=== PATIENT | female | born 1970 | race Caucasian/White ===

== ENCOUNTER 2019-05-08 09:15 | Emergency (ER) | payer OTHER ==
[2019-05-08 09:25] VITALS: RESP 18
[2019-05-08] MEDS ORDERED: KETOROLAC 60 MG/2 ML VIAL IM STA (09:47)
--- NOTE | 2019-05-08 10:25 | XR ---
EXAMINATION TYPE: XR chest 2V DATE OF EXAM: 05/08/2019 COMPARISON: None HISTORY: 48-year-old female with shortness of breath, difficulty breathing TECHNIQUE: PA and lateral views FINDINGS: Heart normal size. Aorta and pulmonary vasculature within normal limits. Mild interstitial prominence as a chronic appearance. Strandy atelectasis in the lower lungs with prominent bands at the left bas e. Patchy posterior basilar opacity on the lateral view. IMPRESSION: Prominent bands of atelectasis at the left base. Posteriorly on the lateral view, there is patchy den sity that could represent additional atelectasis. Correlate to exclude early developing pneumonia.
--- NOTE | 2019-05-08 10:44 | ED ---
General Adult HPI - General Chief complaint: Abdominal Pain Stated complaint: SOB, lt sided abd pain Time Seen by Provider: 05/08/19 09:25 Source: patient, RN notes reviewed, old records reviewed Mode of arrival: ambulatory Limitations: no limitations - History of Present Illness Initial comments: This is a 48-year-old female who presents emergency Department complaining of left lateral chest wall pain. Patient states this pain started on Tuesday after she had been lifting an 80 pound Labrador retriever. Patient states the pain hurts to take deep breath cough or bend or twist. Patient states there is no bruising or rashes over the area. Patient states palpating the area also hurts. Patient denies any shortness of breath but she states it does hurt to take a deep breath. Patient denies any anterior chest pain. Patient denies any radiation of the pain. Patient denies any fever chills or cough. Patient denies any abdominal pain. Patient denies any back pain. - Related Data Previous Rx's Medication Instructions Recorded Ibuprofen [Motrin] 600 mg PO Q6HR PRN #20 tab 05/08/19 Allergies Allergy/AdvReac Type Severity Reaction Status Date / Time Dvzynwp-Xvp-Ldv Reductase Allergy Anaphylaxis Verified 05/08/19 09:21 Inhibitor Review of Systems ROS Statement: Those systems with pertinent positive or pertinent negative responses have been documented in the HPI. ROS Other: All systems not noted in ROS Statement are negative. Past Medical History Past Medical History: Diabetes Mellitus History of Any Multi-Drug Resistant Organisms: None Reported Past Surgical History: Cholecystectomy Past Psychological History: No Psychological Hx Reported Smoking Status: Current every day smoker Past Alcohol Use History: Rare Past Drug Use History: None Reported General Exam - General Exam Comments Initial Comments: GENERAL: Patient is well-developed and well-nourished. Patient is nontoxic and well- hydrated and is in mild distress. ENT: Neck is soft and supple. No significant lymphadenopathy is noted. Oropharynx is clear. Moist mucous membranes. Neck has full range of motion without eliciting any pain. EYES: The sclera were anicteric and conjunctiva were pink and moist. Extraocular movements were intact and pupils were equal round and reactive to light. Eyelids were unremarkable. PULMONARY: Unlabored respirations. Good breath sounds bilaterally. No audible rales rhonchi or wheezing was noted. CARDIOVASCULAR: There is a regular rate and rhythm without any murmurs gallops or rubs. Chest pain is reproducible on the left lateral chest wall at about ribs 10 and 11. ABDOMEN: Soft and nontender with normal bowel sounds. No palpable organomegaly was noted. There is no palpable pulsatile mass. SKIN: Skin is clear with no lesions or rashes and otherwise unremarkable. NEUROLOGIC: Patient is alert and oriented x3. Cranial nerves II through XII are grossly intact. Motor and sensory are also intact. Normal speech, volume and content. Symmetrical smile. MUSCULOSKELETAL: Normal extremities with adequate strength and full range of motion. No lower extremity swelling or edema. No calf tenderness. LYMPHATICS: No significant lymphadenopathy is noted PSYCHIATRIC: Normal psychiatric evaluation. Limitations: no limitations Course Vital Signs 05/08/19 09:21 Temperature 97.9 F Pulse Rate 107 H Respiratory 18 Rate Blood Pressure 131/89 O2 Sat by Pulse 100 Oximetry Medical Decision Making - Medical Decision Making Chest x-ray shows a small area of atelectasis. I will back and discussed this with the patient and she had no signs of pneumonia or bronchitis. EKG shows sinus tachycardia at 1 1 bpm MT interval 140 QRS is 86 QT interval 342 QTC is 443. Patient's EKG shows no ST segment elevation or depression. I reevaluated the patient after Toradol she was feeling considerably better and her pain was reduced but continued to be reproducible. Disposition Clinical Impression: Chest wall pain Disposition: HOME SELF-CARE Instructions (If sedation given, give patient instructions): Chest Wall Pain (ED) Prescriptions: Ibuprofen [Motrin] 600 mg PO Q6HR PRN #20 tab PRN Reason: For pain Is patient prescribed a controlled substance at d/c from ED?: No Referrals: Vesta Giraldo MD [Primary Care Provider] - 1-2 days Time of Disposition: 10:40
[2019-05-08 11:09] VITALS: BP 121/78; PULSE 98; TEMP 98
== END 2019-05-08 11:07 | disposition home or self-care (01) ==
LOC: EC 09:15
DX: R07.89 Other chest pain (principal); R10.9 Unspecified abdominal pain; J98.11 Atelectasis; R00.0 Tachycardia, unspecified; E11.9 Type 2 diabetes mellitus without complications; F17.200 Nicotine dependence, unspecified, uncomplicated; Z88.8 Allergy status to other drugs, medicaments and biological substances
CPT/HCPCS: 93005; 71046; 99284; 96372; J1885

== ENCOUNTER 2019-05-24 13:21 | Inpatient (IN) | payer OTHER ==
[2019-05-24 13:32] LABS: Glucose,Whole Blood >600 mg/dL (75-99)
[2019-05-24] MEDS ORDERED: Magnesium Replacement Protocol 1 EACH MISC MISCELLANE PRN (13:40)
[2019-05-24] MEDS ORDERED: Potassium Replacement Protocol 1 EACH MISC MISCELLANE PRN (13:40)
[2019-05-24] MEDS ORDERED: INSULIN REGULAR BOLUS (FROM DRIP BAG) IV ONE (13:40)
[2019-05-24] MEDS ORDERED: SODIUM CHLORIDE 0.9% 2,000 ML IV ONE (13:47)
--- NOTE | 2019-05-24 13:47 | ED ---
General Adult HPI - General Chief complaint: Recheck/Abnormal Lab/Rx Stated complaint: diabetic issues Time Seen by Provider: 05/24/19 13:30 Source: patient, RN notes reviewed, old records reviewed Mode of arrival: ambulatory Limitations: no limitations - History of Present Illness Initial comments: This a 48-year-old female who states she is a diabetic. Patient states she hasn't had insulin for one month because she moved and hasn't been able to find it. Patient states her sugars been high over the last couple of days she's been very nauseated and unable to eat as much is normal. Patient states she is urinating quite a bit. Patient states she's had no recent fever chills or cough per patient denies any dysuria. Patient denies any diarrhea. Patient denies any chest pain palpitations difficulty breathing shortness of breath. Patient denies any abdominal pain. Patient denies any back pain. - Related Data Previous Rx's Medication Instructions Recorded Ibuprofen [Motrin] 600 mg PO Q6HR PRN #20 tab 05/08/19 Allergies Allergy/AdvReac Type Severity Reaction Status Date / Time morphine Allergy Vomiting Verified 05/24/19 13:29 Rdmqyst-Bau-Tai Reductase Allergy Anaphylaxis Verified 05/24/19 13:29 Inhibitor Review of Systems ROS Statement: Those systems with pertinent positive or pertinent negative responses have been documented in the HPI. ROS Other: All systems not noted in ROS Statement are negative. Past Medical History Past Medical History: Diabetes Mellitus History of Any Multi-Drug Resistant Organisms: None Reported Past Surgical History: Cholecystectomy Past Psychological History: No Psychological Hx Reported Smoking Status: Current every day smoker Past Alcohol Use History: Rare Past Drug Use History: None Reported General Exam - General Exam Comments Initial Comments: GENERAL: Patient is well-developed and well-nourished. Patient is nontoxic and well- hydrated and is in mild distress. ENT: Neck is soft and supple. No significant lymphadenopathy is noted. Oropharynx is clear. Dry mucous membranes. Neck has full range of motion without eliciting any pain. EYES: The sclera were anicteric and conjunctiva were pink and moist. Extraocular movements were intact and pupils were equal round and reactive to light. Eyelids were unremarkable. PULMONARY: Unlabored respirations. Good breath sounds bilaterally. No audible rales rhonchi or wheezing was noted. CARDIOVASCULAR: Patient is tachycardic at 130 beats a minute ABDOMEN: Soft and nontender with normal bowel sounds. No palpable organomegaly was noted. There is no palpable pulsatile mass. SKIN: Skin is clear with no lesions or rashes and otherwise unremarkable. NEUROLOGIC: Patient is alert and oriented x3. Cranial nerves II through XII are grossly intact. Motor and sensory are also intact. Normal speech, volume and content. Symmetrical smile. MUSCULOSKELETAL: Normal extremities with adequate strength and full range of motion. LYMPHATICS: No significant lymphadenopathy is noted PSYCHIATRIC: Normal psychiatric evaluation. Limitations: no limitations Course Vital Signs 05/24/19 13:27 Temperature 98.1 F Pulse Rate 128 H Respiratory 20 Rate Blood Pressure 109/79 O2 Sat by Pulse 99 Oximetry Medical Decision Making - Medical Decision Making EKG shows sinus tachycardia at 115 bpm PA interval 132 QRS is 84 QT interval 348 QTC is 481. Patient has ST segment elevation in leads V1 through the 4. Patient also has biphasic T-wave in the same leads. Patient is chest pain-free and has never complained of any chest pain. EKG appeared to be an acute [place] site immediately called a STEMI overhead. After the patient's EKG was done after she had chest pain she said no however she did state at that point tender earlier today she had jaw pain for a few minutes. Patient states she does smoke but she does have a family history of heart disease. Dr. Faria came down and saw the patient and agreed and will be taking the patient to the [facility]. Patient was given Nitropaste aspirin and heparin emergency department. I spoke with Dr. De Jesus he agreed to admit the patient admitted the patient - Lab Data Result diagrams: 05/24/19 13:50 Lab Results 05/24/19 05/24/19 05/24/19 Range/Units 13:30 13:50 13:50 WBC (3.8-10.6) k/uL RBC (3.80-5.40) m/uL Hgb (11.4-16.0) gm/dL Hct (34.0-46.0) % MCV (80.0-100.0) fL MCH (25.0-35.0) pg MCHC (31.0-37.0) g/dL RDW (11.5-15.5) % Plt Count (150-450) k/uL Neutrophils % % Lymphocytes % % Monocytes % % Eosinophils % % Basophils % % Neutrophils # (1.3-7.7) k/uL Lymphocytes # (1.0-4.8) k/uL Monocytes # (0-1.0) k/uL Eosinophils # (0-0.7) k/uL Basophils # (0-0.2) k/uL VBG pH 7.32 (7.31-7.41) VBG pCO2 53 H (37-51) mmHg VBG HCO3 27 (24-28) mmol/L POC Glucose (mg/dL) >600 H (75-99) mg/dL POC Glu Qc Manager ID Fozia Bolaños Urine Color Yellow Urine Appearance Turbid H (Clear) Urine pH 5.5 (5.0-8.0) Ur Specific [place] 1.023 (1.001-1.035) Urine Protein 1+ H (Negative) Urine Glucose (UA) 4+ H (Negative) Urine Ketones 1+ H (Negative) Urine Blood Large H (Negative) Urine Nitrite Negative (Negative) Urine Bilirubin Negative (Negative) Urine Urobilinogen <2.0 (<2.0) mg/dL Ur Leukocyte Esterase Large H (Negative) Urine RBC 8 H (0-5) /hpf Urine WBC >182 H (0-5) /hpf Urine WBC Clumps Many H (None) /hpf Ur Squamous Epith Cells 11 H (0-4) /hpf Urine Bacteria Moderate H (None) /hpf Urine Mucus Rare H (None) /hpf 05/24/19 Range/Units 13:50 WBC 10.2 (3.8-10.6) k/uL RBC 5.67 H (3.80-5.40) m/uL Hgb 15.9 (11.4-16.0) gm/dL Hct 49.6 H (34.0-46.0) % MCV 87.4 (80.0-100.0) fL MCH 28.1 (25.0-35.0) pg MCHC 32.1 (31.0-37.0) g/dL RDW 12.2 (11.5-15.5) % Plt Count 344 (150-450) k/uL Neutrophils % 76 % Lymphocytes % 17 % Monocytes % 5 % Eosinophils % 0 % Basophils % 0 % Neutrophils # 7.8 H (1.3-7.7) k/uL Lymphocytes # 1.7 (1.0-4.8) k/uL Monocytes # 0.5 (0-1.0) k/uL Eosinophils # 0.0 (0-0.7) k/uL Basophils # 0.0 (0-0.2) k/uL VBG pH (7.31-7.41) VBG pCO2 (37-51) mmHg VBG HCO3 (24-28) mmol/L POC Glucose (mg/dL) (75-99) mg/dL POC Glu Qc Manager ID Urine Color Urine Appearance (Clear) Urine pH (5.0-8.0) Ur Specific [place] (1.001-1.035) Urine Protein (Negative) Urine Glucose (UA) (Negative) Urine Ketones (Negative) Urine Blood (Negative) Urine Nitrite (Negative) Urine Bilirubin (Negative) Urine Urobilinogen (<2.0) mg/dL Ur Leukocyte Esterase (Negative) Urine RBC (0-5) /hpf Urine WBC (0-5) /hpf Urine WBC Clumps (None) /hpf Ur Squamous Epith Cells (0-4) /hpf Urine Bacteria (None) /hpf Urine Mucus (None) /hpf Critical Care Time Critical Care Time: Yes Total Critical Care Time: 35 Disposition Clinical Impression: STEMI (ST elevation myocardial infarction) Disposition: ADMITTED IP TO THIS [facility] Time of Disposition: 14:40
[2019-05-24] MEDS: SODIUM CHLORIDE 0.9% 1,000 ML IV SCH ×2 (14:12→20:08)
[2019-05-24] MEDS ORDERED: ASPIRIN 81 MG PO STA (14:23)
[2019-05-24] MEDS ORDERED: HEPARIN SODIUM,PORCINE 5,000 UNIT/ML 1 ML VIAL IV STA (14:33)
[2019-05-24] MEDS: INSULIN REGULAR 100 UNIT in SODIUM CHLORIDE 0.9% 100 ML IV SCH (14:36)
[2019-05-24 14:39] LABS: Basophils % (A) 0 %; Eosinophils % (A) 0 %; HCT 49.6 % (34.0-46.0); HGB 15.9 gm/dL (11.4-16.0); Lymphocytes # (A) 1.7 k/uL (1.0-4.8); Lymphocytes % (A) 17 %; MCH 28.1 pg (25.0-35.0); MCHC 32.1 g/dL (31.0-37.0); MCV 87.4 fL (80.0-100.0); Mean Platelet Volume 7.9; Monocytes # (A) 0.5 k/uL (0-1.0); Monocytes % (A) 5 %; Neutrophils # (A) 7.8 k/uL (1.3-7.7); Neutrophils % (A) 76 %; Platelet Count 344 k/uL (150-450); RBC 5.67 m/uL (3.80-5.40); RDW 12.2 % (11.5-15.5); WBC 10.2 k/uL (3.8-10.6)
[2019-05-24 14:40] LABS: African American GFR (CKD) >90 (>60 ml/min/1.73 sqM); Anion Gap 14 mmol/L; Appearance,Urine Turbid (Clear); Bacteria,Urine Moderate /hpf; Bilirubin,Urine Negative (Negative); Blood Urea Nitrogen 18 mg/dL (7-17); Blood,Urine Large (Negative); Carbon Dioxide 25 mmol/L (22-30); Chloride 95 mmol/L (98-107); Color,Urine Yellow; Glucose,Urine (UA) 4+ (Negative); Ketones,Urine 1+ (Negative); Leukocyte Esterase,Urine Large (Negative); Mucus,Urine Rare /hpf; Nitrite,Urine Negative (Negative); Non-African American GFR(CKD) >90 (>60 ml/min/1.73 sqM); PH, Urine 5.5 (5.0-8.0); Potassium 4.7 mmol/L (3.5-5.1); Protein,Urine 1+ (Negative); RBC,Urine 8 /hpf (0-5); Sodium 134 mmol/L (137-145); Specific Gravity,Urine 1.023 (1.001-1.035); Squamous Epithelial Cell,Urine 11 /hpf (0-4); Urobilinogen,Urine <2.0 mg/dL (<2.0); VBG PH 7.32 (7.31-7.41); WBC,Urine >182 /hpf (0-5)
[2019-05-24] MEDS ORDERED: BIVALIRUDIN 250 MG VIAL IV ONE ×2 (14:54→15:20)
[2019-05-24] MEDS ORDERED: MIDAZOLAM 2 MG/2 ML VIAL ONE (14:54)
[2019-05-24] MEDS ORDERED: LIDOCAINE 1% INJ 10MG/ML (20 ML MDV) ONE (14:54)
[2019-05-24] MEDS ORDERED: SODIUM CHLORIDE 0.9% 50 ML MINI-BAG IV ONE (14:54)
[2019-05-24] MEDS ORDERED: IOPAMIDOL-300 50ML BTL ONE (14:54)
[2019-05-24] MEDS ORDERED: IOPAMIDOL-370 125ML BTL ONE (14:54)
[2019-05-24] MEDS ORDERED: PRASUGREL 10 MG TAB ONE (14:54)
[2019-05-24] MEDS ORDERED: SODIUM CHLORIDE 0.9% 50 ML BAG ONE (15:20)
[2019-05-24 15:56] LABS: Glucose,Whole Blood 476 mg/dL (75-99)
[2019-05-24] MEDS ORDERED: ZOLPIDEM 5 MG TAB PO PRN (16:46)
[2019-05-24] MEDS ORDERED: MAG HYDROX/AL HYDROX/SIMETH 30 ML CUP PO PRN (16:46)
[2019-05-24] MEDS ORDERED: ATROPINE SULFATE 0.1 MG/ML 10ML SYRINGE IV PRN (16:46)
[2019-05-24] MEDS ORDERED: RX INFO: IV CONTRAST WAS GIVEN 1 EACH MISC MISCELLANE PRN (16:46)
[2019-05-24] MEDS ORDERED: NITROGLYCERIN SL TABS 0.4 MG TAB SUBLINGUAL PRN (16:46)
[2019-05-24] MEDS ORDERED: SODIUM CHLORIDE 0.9% 1,000 ML IV SCH (17:00)
[2019-05-24 17:14] LABS: Glucose,Whole Blood 279 mg/dL (75-99)
[2019-05-24 17:56] LABS: Basophils % (A) 0 %; Eosinophils % (A) 0 %; HGB 14.5 gm/dL (11.4-16.0); Lymphocytes % (A) 19 %; MCH 27.8 pg (25.0-35.0); MCHC 32.9 g/dL (31.0-37.0); MCV 84.4 fL (80.0-100.0); Mean Platelet Volume 7.2; Monocytes # (A) 0.5 k/uL (0-1.0); Monocytes % (A) 5 %; Neutrophils % (A) 74 %; Platelet Count 328 k/uL (150-450); RBC 5.21 m/uL (3.80-5.40); RDW 12.1 % (11.5-15.5); WBC 10.8 k/uL (3.8-10.6)
[2019-05-24 18:03] LABS: Cholesterol 156 mg/dL (<200); HDL Cholesterol 37 mg/dL (40-60); LDL Cholesterol,Calculated 93 mg/dL (0-99); Triglycerides 132 mg/dL (<150)
[2019-05-24 18:04] LABS: INR 1.4 (<1.2); Partial Thromboplastin Time 67.4 sec (22.0-30.0); Prothrombin Time 14.2 sec (9.0-12.0)
[2019-05-24 18:08] LABS: Glucose,Whole Blood 195 mg/dL (75-99)
--- NOTE | 2019-05-24 18:47 | CONS ---
CONSULTATION Mrs. Singh is a 48-year-old female who was seen in the emergency room with a diagnosis of UB-bhreliy-ywuizafpk myocardial infarction. The history was obtained from the patient as well as the daughter and the emergency room physician. The patient came to the hospital because her blood sugar was elevated. The patient has a history of diabetes and she has not taken her insulin for one month. She had slight nausea. She denied any vomiting. She denied any fever or chills. Denied any respiratory distress. Patient's blood sugar was 600. Routine EKG was done which shows evidence of ST-segment elevation in V1 to V3 suggestive of anteroseptal myocardial infarction. The patient was complaining of minimal jaw discomfort upon repeat questioning. There is no previous history of myocardial infarction. No history of hypertension. The patient is otherwise ambulatory and functional. Past medical history includes history of cholecystectomy. Review of the systems is otherwise unremarkable. MEDICATIONS: None at present. PHYSICAL EXAMINATION: Physical examination at present reveals a 48-year-old female who is lying comfortably in the bed. Her breathing is not acidotic. Blood pressure is 130/80 mmHg. Head and ENT examination is negative. Neck is supple. There is no increase in jugular venous pressure. Both the carotid pulses are felt. There is no bruit. Chest is symmetrical. HEART: The PMI is not felt. First and second heart sounds are normal. There is no evidence of any murmur. Lungs are clinically clear to auscultation and percussion. Abdomen is soft. Liver and spleen are not enlarged. Bowel sounds are heard. EXTREMITIES: Peripheral pulsations are 2+. EKG shows ST-segment elevation in V2, V3. There is no evidence of any reciprocal ST- segment depression. FINAL IMPRESSION: 1. This patient's EKG is suggestive of acute anteroseptal myocardial infarction. However, the patient is not having any significant symptoms and this could be secondary to her diabetes. 2. Patient has significantly elevated blood sugar. Patient is currently getting IV fluids. The only lab at present available is the blood sugar of 600. Other labs are being awaited. I had an extensive discussion with the patient as well as her daughter and explained that she is having a heart attack and we need to do a catheterization. We do not know at present patient's kidney functions. Patient is undergoing hydration. The risks of dye injury and acute kidney injury were fully explained to the patient as well as her daughter, and they want to proceed with it. The patient has received heparin and aspirin. MMODL / IJN: [id number] /
--- NOTE | 2019-05-24 18:53 | CC ---
CARDIAC CATHETERIZATION REPORT Mrs. Singh is a 48-year-old female who came to the emergency room with a complaint of running a high blood sugar. The patient has a known history of diabetes. She did not take her insulin for last one month. She checked her sugar at home and the blood sugar was high. In view of that, the patient came to the emergency room. The patient did not complain of any other complaint. After further questions, she said she was feeling slightly nauseated. She did not complain of any chest pain. Initial blood sugar was 600. A routine EKG was obtained which showed evidence of ST-segment elevation in V2 to V3 without any significant reciprocal changes. In view of the significant ST-segment elevations suggestive of acute LV-kolbdoy-krotbodxo myocardial infarction, the patient was advised further evaluation with a cardiac catheterization for definitive diagnosis. PROCEDURE DESCRIPTION: The right groin was prepped and draped in the usual manner and the skin was infiltrated with 2% Xylocaine. The right femoral artery was entered using Seldinger technique. A #6- Hebrew sheath was placed in. Selective coronary angiography was then performed in multiple projections and left ventricular pressures were obtained. Patient tolerated the procedure well. HEMODYNAMICS: Left ventricular end-diastolic pressure was 8 to 12 mmHg prior to angiography. No gradient is noted across the aortic valve. SELECTIVE CORONARY ANGIOGRAPHY: Left main coronary artery is normal and patent. LAD is a good-caliber blood vessel. Mid LAD is totally occluded after the origin of the good-sized diagonal branch. The circumflex coronary artery is a good-caliber blood vessel. There is a high obtuse marginal branch with a relatively small-caliber blood vessel and has a 90% stenosis. Right coronary artery is a normal-caliber blood vessel, dominant in distribution, and gives rise to the PDA and PLV branches and it is normal. Left ventriculography reveals anteroapical hypokinesia with an ejection fraction of 45% to 50%. FINAL IMPRESSION: There is a total occlusion of the mid LAD. The first high obtuse marginal branch is a relatively small-caliber blood vessel and has a 90% stenosis. The right coronary artery is normal. RECOMMENDATIONS: The films were reviewed with Dr. De Jesus, and we will proceed with a stent to the LAD. MMODL / IJN: [id number] /
[2019-05-24 19:30] LABS: Glucose,Whole Blood 104 mg/dL (75-99)
[2019-05-24 19:57] LABS: African American GFR (CKD) >90 (>60 ml/min/1.73 sqM); Anion Gap 11 mmol/L; Blood Urea Nitrogen 15 mg/dL (7-17); Calcium 9.6 mg/dL (8.4-10.2); Carbon Dioxide 20 mmol/L (22-30); Chloride 105 mmol/L (98-107); Glucose 244 mg/dL (74-99); Magnesium 2.1 mg/dL (1.6-2.3); Non-African American GFR(CKD) >90 (>60 ml/min/1.73 sqM); Phosphorus 3.3 mg/dL (2.5-4.5); Potassium 4.5 mmol/L (3.5-5.1); Sodium 136 mmol/L (137-145)
--- NOTE | 2019-05-24 20:02 | PTCA ---
PERCUTANEOUSTRANS CORORONARY ANGIOGRAPHY Mrs. Singh is a 48-year-old female with a history of diabetes, history of chronic tobacco use, who has stopped taking her insulin for over a month, came into the emergency room because she noted that her blood sugar was elevated. She had no symptoms of chest discomfort. After over an hour of being in the emergency room an EKG was done that showed ST-segment elevation. She was evaluated by Dr. Faria in view of that. Recommendation was made regarding cardiac catheterization and she underwent cardiac catheterization that showed a totally occluded mid LAD at the takeoff of a diagonal. At that time recommendation was made regarding angioplasty and stenting. The procedure, its risks and complications were discussed with the patient, who was in full understanding and agreement. PROCEDURE DESCRIPTION: A 6-Ecuadorean FR4 guiding catheter was introduced into the system. After cannulating the left main, a 0.014 balanced medium weight J-wire was advanced and positioned in the LAD beyond the total occlusion. Subsequently a 1.5 x 8 mm Mini Trek balloon was advanced and multiple inflations at maximum of 10 atmospheres were done. The balloon was removed and a 0.014 balanced medium weight J-wire was advanced and positioned in the diagonal branch. Subsequently the wire into the LAD was exchanged to a Whisper J-wire and positioned distally. Subsequently, a 2.5 x 12 mm Trek balloon was advanced. Multiple inflations in the LAD were performed. Following that, the balloon was removed and a 2.0 x 12 mm Trek balloon was advanced into the diagonal branch into the LAD and multiple inflations up to 10 atmospheres were done. Subsequently an ASAPLP aspiration catheter was introduced and a run was done in the LAD with no evidence of any clot. Following that, further inflation with a 2.0 x 12 mm Trek balloon was advanced and after the last inflation, the balloon and the guidewire were withdrawn back into the guiding catheter. Images were obtained and repeated. At that point the guiding catheter, the balloon and the guidewire were removed. The sheath was sutured in place. The patient was returned to her room in stable condition. Of note, the patient received a large amount of intracoronary nicardipine. She had evidence of no reflow involving the diagonal branch as well as the LAD. There was improvement in the flow in the LAD, but no mormon to the apex because of no reflow. RESULTS: Totally occluded mid LAD with mormon of flow in the proximal segment of the total occlusion with evidence of no reflow involving the diagonal branch as well as the LAD. RECOMMENDATIONS: At this time I would recommend to continue on the medical therapy. It is possible that the worsening of the no reflow is related to the very elevated blood sugar that brought in the patient. I will maximize her medical therapy. Depending on her progress, further recommendations will be made. Those findings and recommendations were discussed with the patient and her family, who are in full understanding and agreement. Duration of procedure was 71 minutes. ROBLES / VIN: [id number] /
[2019-05-24 20:22] LABS: Glucose,Whole Blood 119 mg/dL (75-99)
[2019-05-24] MEDS ORDERED: ATORVASTATIN 80 MG TAB PO SCH (21:00)
[2019-05-24 21:15] LABS: Glucose,Whole Blood 162 mg/dL (75-99)
[2019-05-24] MEDS: METOPROLOL TARTRATE 25 MG TAB PO SCH (21:44)
[2019-05-24] MEDS: EZETIMIBE 10 MG TAB PO SCH (21:45)
[2019-05-24] MEDS ORDERED: HEPARIN SOD,PORK IN 0.45% NACL 25,000 UNIT in 0.45% NACL 1 250ML.BAG IV SCH (22:00)
[2019-05-24 22:06] LABS: Glucose,Whole Blood 173 mg/dL (75-99)
[2019-05-24] MEDS ORDERED: DEXTROSE 5%-0.45% NACL 1,000 ML with POTASSIUM CHLORIDE 20 MEQ IV SCH ×2 (22:45)
[2019-05-24 23:11] LABS: Glucose,Whole Blood 216 mg/dL (75-99)
[2019-05-24] MEDS: D5-0.45% NACL WITH KCL 20MEQ/L 1,000 ML IV SCH (23:23)
[2019-05-24] MEDS: HEPARIN SOD,PORK IN 0.45% NACL 25,000 UNIT in 0.45% NACL 1 250ML.BAG IV SCH (23:45)
[2019-05-25 00:15] LABS: Glucose,Whole Blood 237 mg/dL (75-99)
[2019-05-25 00:39] LABS: African American GFR (CKD) >90 (>60 ml/min/1.73 sqM); Anion Gap 6 mmol/L; Blood Urea Nitrogen 12 mg/dL (7-17); Calcium 9.2 mg/dL (8.4-10.2); Carbon Dioxide 27 mmol/L (22-30); Chloride 103 mmol/L (98-107); Glucose 211 mg/dL (74-99); Magnesium 1.9 mg/dL (1.6-2.3); Non-African American GFR(CKD) >90 (>60 ml/min/1.73 sqM); Phosphorus 3.6 mg/dL (2.5-4.5); Potassium 3.8 mmol/L (3.5-5.1); Sodium 136 mmol/L (137-145)
[2019-05-25] MEDS: MAGNESIUM SULFATE-D5W PMX 1 GM in DEXTROSE/WATER 1 100ML.BAG IVPB SCH ×2 (01:13→02:17)
[2019-05-25 01:26] LABS: Glucose,Whole Blood 314 mg/dL (75-99)
[2019-05-25] MEDS: INSULIN REGULAR 100 UNIT in SODIUM CHLORIDE 0.9% 100 ML IV SCH (02:17)
[2019-05-25 02:20] LABS: Glucose,Whole Blood 284 mg/dL (75-99)
[2019-05-25 03:06] LABS: Glucose,Whole Blood 260 mg/dL (75-99)
[2019-05-25] MEDS ORDERED: POTASSIUM CHLORIDE 10 MEQ in WATER FOR INJECTION 1 100ML.BAG IVPB SCH (03:15)
[2019-05-25 04:10] LABS: Glucose,Whole Blood 246 mg/dL (75-99)
[2019-05-25 05:16] LABS: Glucose,Whole Blood 193 mg/dL (75-99)
[2019-05-25 05:51] LABS: African American GFR (CKD) >90 (>60 ml/min/1.73 sqM); Anion Gap 8 mmol/L; Blood Urea Nitrogen 9 mg/dL (7-17); Calcium 8.7 mg/dL (8.4-10.2); Carbon Dioxide 22 mmol/L (22-30); Chloride 104 mmol/L (98-107); Glucose 182 mg/dL (74-99); Magnesium 2.5 mg/dL (1.6-2.3); Non-African American GFR(CKD) >90 (>60 ml/min/1.73 sqM); Phosphorus 2.5 mg/dL (2.5-4.5); Potassium 4.1 mmol/L (3.5-5.1); Sodium 134 mmol/L (137-145)
[2019-05-25] MEDS: HEPARIN SODIUM,PORCINE 5,000 UNIT/ML 1 ML VIAL IV PRN ×2 (05:59→13:34)
[2019-05-25 06:14] LABS: Glucose,Whole Blood 147 mg/dL (75-99)
[2019-05-25] MEDS: D5-0.45% NACL WITH KCL 20MEQ/L 1,000 ML IV SCH (06:19)
[2019-05-25] MEDS ORDERED: INSULIN DETEMIR (LEVEMIR) 100 UNIT/ML SYR SQ SCH (07:00)
[2019-05-25 07:01] LABS: Basophils % (A) 0 %; Eosinophils # (A) 0.1 k/uL (0-0.7); Eosinophils % (A) 1 %; HCT 39.2 % (34.0-46.0); Lymphocytes # (A) 2.6 k/uL (1.0-4.8); Lymphocytes % (A) 21 %; MCH 27.8 pg (25.0-35.0); MCHC 33.3 g/dL (31.0-37.0); MCV 83.7 fL (80.0-100.0); Mean Platelet Volume 7.2; Monocytes # (A) 0.7 k/uL (0-1.0); Monocytes % (A) 6 %; Neutrophils # (A) 8.8 k/uL (1.3-7.7); Neutrophils % (A) 71 %; Platelet Count 284 k/uL (150-450); RBC 4.68 m/uL (3.80-5.40); RDW 12.2 % (11.5-15.5); WBC 12.4 k/uL (3.8-10.6)
[2019-05-25 07:05] LABS: Glucose,Whole Blood 139 mg/dL (75-99)
[2019-05-25 08:12] LABS: Glucose,Whole Blood 252 mg/dL (75-99)
[2019-05-25] MEDS ORDERED: LISINOPRIL 2.5 MG TAB PO SCH (09:00)
[2019-05-25 09:26] LABS: Glucose,Whole Blood 327 mg/dL (75-99)
--- NOTE | 2019-05-25 10:00 | ECHOF ---
Referral Reason:mi MEASUREMENTS -------- HEIGHT: 157.5 cm WEIGHT: 70.3 kg BP: IVSd: 1.3 cm (0.6 - 1.1) LVIDd: 4.0 cm (3.9 - 5.3) LVPWd: 1.5 cm (0.6 - 1.1) IVSs: 1.4 cm LVIDs: 3.2 cm LVPWs: 1.5 cm LAESV Index (A-L): 21.78 ml/m Ao Diam: 2.9 cm (2.0 - 3.7) AV Cusp: 1.9 cm (1.5 - 2.6) LA Diam: 2.7 cm (2.7 - 3.8) MV E Richard: 0.45 m/s MV DecT: 106 ms MV A Richard: 0.90 m/s MV E/A Ratio: 0.50 FINDINGS -------- Sinus rhythm. This was a technically adequate study. The left ventricular size is normal. There is mild concentric left ventricular hypertrophy. Overa ll left ventricular systolic function is severely impaired with, an EF between 25 - 30 %. Apical an terior LV wall motion is hypokinetic. Apical lateral LV wall motion is hypokinetic. Apical infe rior LV wall motion is hypokinetic. Apical septum LV wall motion is hypokinetic. Harshaw Hypokines is. The right ventricle is normal in size. Normal LA size by volume 22+/-6 ml/m2. The right atrial size is normal. Interatrial and interventricular septum intact. There is no evidence of aortic regurgitation. There is no evidence of aortic stenosis. Mild mitral regurgitation is present. Mild tricuspid regurgitation present. There is no evidence of pulmonary hypertension. The right v entricular systolic pressure, as measured by Doppler, is {RVSP}. There is no pulmonic regurgitation present. The aortic root size is normal. Normal inferior vena cava with normal inspiratory collapse consistent with estimated right atrial pre ssure of 5 mmHg. There is no pericardial effusion. CONCLUSIONS -------- 1. Sinus rhythm. 2. This was a technically adequate study. 3. The left ventricular size is normal. 4. There is mild concentric left ventricular hypertrophy. 5. Overall left ventricular systolic function is severely impaired with, an EF between 25 - 30 %. 6. Apical anterior LV wall motion is hypokinetic. 7. Apical lateral LV wall motion is hypokinetic. 8. Apical inferior LV wall motion is hypokinetic. 9. Apical septum LV wall motion is hypokinetic. 10. Harshaw Hypokinesis. 11. The right ventricle is normal in size. 12. Normal LA size by volume 22+/-6 ml/m2. 13. The right atrial size is normal. 14. Interatrial and interventricular septum intact. 15. There is no evidence of aortic regurgitation. 16. There is no evidence of aortic stenosis. 17. Mild mitral regurgitation is present. 18. Mild tricuspid regurgitation present. 19. There is no evidence of pulmonary hypertension. 20. The right ventricular systolic pressure, as measured by Doppler, is {RVSP}. 21. There is no pulmonic regurgitation present. 22. The aortic root size is normal. 23. Normal inferior vena cava with normal inspiratory collapse consistent with estimated right atrial pressure of 5 mmHg. 24. There is no pericardial effusion. CONSTRUCTION MANAGER: Katharine Boss RDCS
[2019-05-25] MEDS: ASPIRIN 81 MG PO SCH (10:20)
[2019-05-25] MEDS: SPIRONOLACTONE 25 MG TAB PO SCH (10:21)
[2019-05-25] MEDS: EZETIMIBE 10 MG TAB PO SCH (10:21)
[2019-05-25] MEDS: LOSARTAN 25 MG TAB PO SCH (10:21)
[2019-05-25] MEDS: METOPROLOL TARTRATE 25 MG TAB PO SCH ×2 (10:22→21:37)
[2019-05-25 10:29] VITALS: BMI 28.1
[2019-05-25] MEDS: INSULIN NPH 300 UNIT/3 ML VIAL SQ SCH ×2 (11:02→21:47)
[2019-05-25] MEDS: PRASUGREL 10 MG TAB PO SCH (11:02)
[2019-05-25 12:03] LABS: Glucose,Whole Blood 306 mg/dL (75-99)
[2019-05-25] MEDS: INSULIN ASPART (NovoLOG) 100 UNIT/ML VIAL SQ SCH ×3 (12:03→21:38)
--- NOTE | 2019-05-25 12:23 | PN ---
PROGRESS NOTE This patient came with uncontrolled blood sugar and elevated blood sugar as well as anterior wall myocardial infarction. The patient had a total occlusion of the mid LAD. However, patient had no distal runoff so patient just had a balloon dilatation, but no stent was placed in the patient. Patient's LV gram showed only a small area of anterior apical hypokinesia. Maximum troponin is 29 noted. The patient is doing fairly well. She is comfortable. Blood pressure is 113/81 mmHg, heart rate is now 100 per minute. First and second heart sounds are normal. Lungs are clinically clear to auscultation and percussion. We will continue heparin for 24 hours. Continue Effient and aspirin. The patient is allergic to all the STATIN, may consider for Repatha as an outpatient. MMODL / IJN: [id number] /
[2019-05-25 16:49] LABS: Glucose,Whole Blood 224 mg/dL (75-99)
[2019-05-25] MEDS ORDERED: FUROSEMIDE 10 MG/ML 2 ML VIAL IV ONE (18:15)
[2019-05-25] MEDS: HEPARIN SOD,PORK IN 0.45% NACL 25,000 UNIT in 0.45% NACL 1 250ML.BAG IV SCH (21:44)
[2019-05-25 21:47] LABS: Glucose,Whole Blood 258 mg/dL (75-99)
--- NOTE | 2019-05-25 23:43 | P.HPIM ---
History of Present Illness H&P Date: 05/25/19 Chief Complaint: nausea, vomiting Sahara Singh is a 48 yo F with PMH of T2DM who presents to [facility] ED complaining of weakness and fatigue over the past few weeks as well as nausea, vomiting and diaphoresis since yesterday morning. She states she ran out of insulin and had not been able to pick any up for the past month or so, and her sugars have been running in the 400s. She had been lethargic and experiencing polyuria. She states that after developing nausea and diaphoresis today she presented to the ED. On arrival vitals stable, WBC 10k, glucose >600, trop 12 E KG shows STEMI. [facility] was [facility] [employer] [facility] and found to have an occluded mid- LAD and underwent ballooning. Subsequent echo showed LVEF 25-30% and apical hypokinesis. She is a nonsmoker and did not experience any chest pain. Review of Systems All systems: negative Constitutional: Reports lethargy, Denies chills, Denies fever Eyes: denies blurred vision, denies pain Ears, nose, mouth and throat: Denies headache, Denies sore throat Cardiovascular: Denies chest pain, Denies shortness of breath Respiratory: Denies cough Gastrointestinal: Reports nausea, Reports vomiting, Denies abdominal pain, Denies diarrhea Genitourinary: Denies dysuria, Denies hematuria Musculoskeletal: Denies myalgias Integumentary: Denies pruritus, Denies rash Neurological: Denies numbness, Denies weakness Psychiatric: Denies anxiety, Denies depression Endocrine: Reports excessive sweating, Denies fatigue, Denies weight change Past Medical History Past Medical History: Diabetes Mellitus History of Any Multi-Drug Resistant Organisms: None Reported Past Surgical History: Cholecystectomy, Joint Replacement Additional Past Surgical History / Comment(s): Left knee partial Past Psychological History: No Psychological Hx Reported, Anxiety, Depression, Panic Disorder Smoking Status: Current every day smoker Past Alcohol Use History: Rare Past Drug Use History: None Reported - Past Family History Mother Family Medical History: COPD, Myocardial Infarction (MS) Additional Family Medical History / Comment(s): MS at 67 years old Medications and Allergies Home Medications Medication Instructions Recorded Confirmed Type Insulin Unknown See Protocol SQ DIRECTED 05/24/19 05/24/19 History Omeprazole [PriLOSEC] 20 mg PO AC-BID 05/24/19 05/24/19 History Pioglitazone HCl 15 mg PO DAILY 05/24/19 05/24/19 History metFORMIN HCL ER [Glucophage Xr] See Taper PO DIRECTED 05/24/19 05/24/19 History Allergies Allergy/AdvReac Type Severity Reaction Status Date / Time morphine Allergy Vomiting Verified 05/24/19 14:49 Jslvhsu-Wta-Lza Reductase Allergy Anaphylaxis Verified 05/24/19 14:49 Inhibitor Physical Exam Vitals: Vital Signs Temp Pulse Resp BP Pulse Ox 05/25/19 23:00 85 21 97/69 96 05/25/19 22:00 95 10 L 97/68 97 05/25/19 21:00 97 18 100/67 96 05/25/19 20:00 98.6 F 98 18 88/64 94 L 05/25/19 19:00 90 17 93/65 98 05/25/19 18:00 90 20 84/52 98 05/25/19 17:00 98 21 96/69 100 05/25/19 16:00 89 20 92/71 95 05/25/19 15:00 85 20 103/72 95 05/25/19 14:00 87 23 95/73 96 05/25/19 13:00 81 17 109/63 95 05/25/19 12:00 98.7 F 83 14 95/71 97 05/25/19 11:00 98 15 112/75 97 05/25/19 10:00 100 20 113/81 97 05/25/19 09:00 106 H 19 115/73 95 05/25/19 08:00 98.2 F 102 H 24 104/80 95 05/25/19 07:00 106 H 26 H 102/72 96 05/25/19 06:00 95 21 81/61 95 05/25/19 05:00 92 20 105/75 96 05/25/19 04:00 99.7 F H 92 12 105/75 95 05/25/19 03:00 92 17 96/70 95 05/25/19 02:00 92 21 92/66 94 L 05/25/19 01:00 90 20 94/68 95 05/25/19 00:34 95 05/25/19 00:00 100.2 F H 89 18 106/76 96 05/24/19 23:30 100 20 110/77 96 Intake and Output 05/25/19 05/25/19 05/26/19 14:59 22:59 06:59 Intake Total 690.677 262.716 20 Output Total 3 1 Balance 687.677 261.716 20 Intake: IV 610 160 20 D5-0.45% NaCl with KCl 450 20Meq/l 1,000 ml @ 150 mls/hr IV .Q6H40M SEJAL Rx# :[id number] Sodium Chloride 0.9% 1, 160 160 20 000 ml @ 100 mls/hr IV . Q10H SEJAL Rx#:[id number] Intake, IV Titration 80.677 102.716 Amount Heparin Sod,Pork in 0.45% 80.677 102.716 NaCl 25,000 unit In 0.45 % NaCl 1 250ml.bag @ 12 UNITS/KG/HR 8.437 mls/hr IV .Q24H SEJAL Rx#: [id number] Output: Urine 3 1 Other: Voiding Method Toilet Toilet # Voids 1 0 Weight 69.8 kg General: well nourished, well developed, NAD. Vitals reviewed Eyes: PERRL, EOMI, conjunctiva normal HENT: normocephalic, mucus membranes moist Neck: supple, no JVD Lungs: normal respiratory effort, no wheezes or rales CV: Regular rate and rhythm, no murmur. Peripheral pulses 2+ Abdomen: soft, nondistended, no organomegaly Lymph: no cervical or axillary LAD Skin: warm and dry. Neuro: A&Ox3, normal mood and affect Results CBC & Chem 7: 05/25/19 06:45 05/25/19 05:03 Labs: Abnormal Lab Results - Last 24 Hours (Table) 05/24/19 05/24/19 05/25/19 Range/Units 23:32 23:32 00:04 WBC (3.8-10.6) k/uL Neutrophils # (1.3-7.7) k/uL APTT (22.0-30.0) sec Sodium 136 L (137-145) mmol/L Glucose 211 H (74-99) mg/dL POC Glucose (mg/dL) 237 H (75-99) mg/dL Magnesium (1.6-2.3) mg/dL Troponin I 24.300 H* (0.000-0.034) ng/mL 12/13/19 12/13/19 12/13/19 Range/Units 01:14 02:09 02:54 WBC (3.8-10.6) k/uL Neutrophils # (1.3-7.7) k/uL APTT (22.0-30.0) sec Sodium (137-145) mmol/L Glucose (74-99) mg/dL POC Glucose (mg/dL) 314 H 284 H 260 H (75-99) mg/dL Magnesium (1.6-2.3) mg/dL Troponin I (0.000-0.034) ng/mL 05/25/19 05/25/19 05/25/19 Range/Units 03:58 05:03 05:03 WBC (3.8-10.6) k/uL Neutrophils # (1.3-7.7) k/uL APTT (22.0-30.0) sec Sodium 134 L (137-145) mmol/L Glucose 182 H (74-99) mg/dL POC Glucose (mg/dL) 246 H (75-99) mg/dL Magnesium 2.5 H (1.6-2.3) mg/dL Troponin I 29.500 H* (0.000-0.034) ng/mL 05/25/19 05/25/19 05/25/19 Range/Units 05:03 05:04 06:03 WBC (3.8-10.6) k/uL Neutrophils # (1.3-7.7) k/uL APTT 30.5 H (22.0-30.0) sec Sodium (137-145) mmol/L Glucose (74-99) mg/dL POC Glucose (mg/dL) 193 H 147 H (75-99) mg/dL Magnesium (1.6-2.3) mg/dL Troponin I (0.000-0.034) ng/mL 05/25/19 05/25/19 05/25/19 Range/Units 06:45 06:54 08:02 WBC 12.4 H (3.8-10.6) k/uL Neutrophils # 8.8 H (1.3-7.7) k/uL APTT (22.0-30.0) sec Sodium (137-145) mmol/L Glucose (74-99) mg/dL POC Glucose (mg/dL) 139 H 252 H (75-99) mg/dL Magnesium (1.6-2.3) mg/dL Troponin I (0.000-0.034) ng/mL 05/25/19 05/25/19 05/25/19 Range/Units 09:14 11:51 12:16 WBC (3.8-10.6) k/uL Neutrophils # (1.3-7.7) k/uL APTT 38.2 H (22.0-30.0) sec Sodium (137-145) mmol/L Glucose (74-99) mg/dL POC Glucose (mg/dL) 327 H 306 H (75-99) mg/dL Magnesium (1.6-2.3) mg/dL Troponin I (0.000-0.034) ng/mL 05/25/19 05/25/19 05/25/19 Range/Units 12:16 16:37 19:41 WBC (3.8-10.6) k/uL Neutrophils # (1.3-7.7) k/uL APTT 55.9 H (22.0-30.0) sec Sodium (137-145) mmol/L Glucose (74-99) mg/dL POC Glucose (mg/dL) 224 H (75-99) mg/dL Magnesium (1.6-2.3) mg/dL Troponin I 26.200 H* (0.000-0.034) ng/mL 05/25/19 Range/Units 21:36 WBC (3.8-10.6) k/uL Neutrophils # (1.3-7.7) k/uL APTT (22.0-30.0) sec Sodium (137-145) mmol/L Glucose (74-99) mg/dL POC Glucose (mg/dL) 258 H (75-99) mg/dL Magnesium (1.6-2.3) mg/dL Troponin I (0.000-0.034) ng/mL Microbiology - Last 24 Hours (Table) 05/24/19 13:50 Urine Culture - Preliminary Urine,Voided Thrombosis Risk Factor Assmnt - Choose All That Apply Each Factor Represents 1 point: Acute MS, Age 41-60 years Thrombosis Risk Factor Assessment Total Risk Factor Score: 2 Thrombosis Risk Factor Assessment Level: Low Risk Assessment and Plan (1) Type 2 diabetes mellitus with insulin therapy Current Visit: Yes Status: Acute Code(s): E11.9 - TYPE 2 DIABETES MELLITUS WITHOUT COMPLICATIONS; Z79.4 - RETIREMENT (CURRENT) USE OF INSULIN SNOMED Code(s): 17632668 (2) Wall motion abnormality of inferior wall of left ventricle Current Visit: Yes Status: Acute Code(s): R93.1 - ABNORMAL FINDINGS ON DX IMAGING OF HEART AND COR CIRC SNOMED Code(s): 657824197 (3) Systolic CHF, acute Current Visit: Yes Status: Acute Code(s): I50.21 - ACUTE SYSTOLIC (CONGESTIVE) HEART FAILURE SNOMED Code(s): 918386646 (4) STEMI (ST elevation myocardial infarction) Current Visit: Yes Status: Acute Code(s): I21.3 - ST ELEVATION (STEMI) MYOCARDIAL INFARCTION OF [facility] SITE SNOMED Code(s): 53585962 Plan: 1. STEMI. Cardiology following. Continue heparin. Effient and ASA 2. New onset systolic CHF. metoprolol, losartan, aldactone 3. T2DM. Start insulin NPH 15 U bid. Accucheck, sliding scale DVT prophylaxis heparin
[2019-05-26 04:50] LABS: Basophils % (A) 0 %; Eosinophils # (A) 0.1 k/uL (0-0.7); Eosinophils % (A) 1 %; HCT 37.6 % (34.0-46.0); HGB 12.6 gm/dL (11.4-16.0); Lymphocytes # (A) 2.8 k/uL (1.0-4.8); Lymphocytes % (A) 27 %; MCH 28.1 pg (25.0-35.0); MCHC 33.5 g/dL (31.0-37.0); MCV 83.9 fL (80.0-100.0); Mean Platelet Volume 7.6; Monocytes # (A) 0.5 k/uL (0-1.0); Monocytes % (A) 5 %; Neutrophils # (A) 6.6 k/uL (1.3-7.7); Neutrophils % (A) 65 %; Platelet Count 305 k/uL (150-450); RBC 4.48 m/uL (3.80-5.40); RDW 12.1 % (11.5-15.5); WBC 10.2 k/uL (3.8-10.6)
--- NOTE | 2019-05-26 06:40 | XR ---
EXAMINATION TYPE: XR chest 1V portable DATE OF EXAM: 05/26/2019 HISTORY: sob. REFERENCE: Previous study dated 05/08/2019. FINDINGS: There is continuing left basilar atelectasis. The right lung appears clear. Pleural spaces are clear. Heart size is within normal limits. IMPRESSION: CONTINUING LEFT BASILAR ATELECTASIS.
[2019-05-26 07:15] LABS: Glucose,Whole Blood 284 mg/dL (75-99)
[2019-05-26] MEDS: INSULIN ASPART (NovoLOG) 100 UNIT/ML VIAL SQ SCH ×4 (07:17→21:04)
[2019-05-26] MEDS: PRASUGREL 10 MG TAB PO SCH (07:58)
[2019-05-26] MEDS: SPIRONOLACTONE 25 MG TAB PO SCH (07:59)
[2019-05-26] MEDS: EZETIMIBE 10 MG TAB PO SCH (07:59)
[2019-05-26] MEDS: ASPIRIN 81 MG PO SCH (08:02)
[2019-05-26] MEDS ORDERED: INSULIN NPH 300 UNIT/3 ML VIAL SQ SCH (09:00)
[2019-05-26 11:49] LABS: Glucose,Whole Blood 221 mg/dL (75-99)
[2019-05-26] MEDS: METOPROLOL TARTRATE 25 MG TAB PO SCH (12:10)
[2019-05-26] MEDS: LOSARTAN 25 MG TAB PO SCH (12:11)
--- NOTE | 2019-05-26 14:18 | PN ---
PROGRESS NOTE This patient is status post anterior wall myocardial infarction. She is feeling better. Denies any shortness of breath, orthopnea or PND. Denies any cough. Patient's vital signs remain stable. Blood pressure is 110/70 mmHg. First and second heart sounds are normal. Lungs are clinically clear to auscultation and percussion. The patient's echocardiogram reviewed. The patient's predominant with apical septal and apical hypokinesia. Estimated ejection fraction in the range of 40%. This was discussed with the patient. We will repeat the echocardiogram in 6 weeks. MMODL / IJN: [id number] /
[2019-05-26] MEDS: NICOTINE 14MG/24HR PATCH TRANSDERM SCH (14:45)
--- NOTE | 2019-05-26 16:25 | P.PN ---
Subjective this is a pleasant 48 years old female with past medical history of diabetes mellitus. Presents because of hyperglycemia.found to haveSTEMI with si gnificantly elevated troponin,she underwent cardiac cath and she is status post placement of a stent in her left anterior descending artery. Also on echocardiogram she had low ejection fraction of 25-30% with a diagnosis with acute systolic congestive heart failure. Patient was admitted to the ICU after the cardiac cath and she's been monitored for closely.she was a started on aspirin and Effient, and also she was a started on heparin drip for 24 hours. Also patient was complaining of from burning sensation in her urine with increased frequency. She had mild intermittent fever with leukocytosis, patient received 1 dose of Rocephin which we going to continue with as well. Her urine culture is growing gram-negative bacilli with the final result is pending. Glucose is better controlled. Her blood pressure was on the low normal side. today she is complaining of from mild chest pressure, and mild swelling in the feet however on examination her feet swelling is very minimaland patient was counseled to raise her legs at nighttime and she agrees Review of systems CONSTITUTIONAL: No fever, no malaise, no fatigue. HEENT: No recent visual problems or hearing problems. Denied any sore throat. CARDIOVASCULAR: No orthopnea, PND, no palpitations, no syncope. PULMONARY: No shortness of breath, no cough, no hemoptysis. GASTROINTESTINAL: No diarrhea, no nausea, no vomiting, no abdominal pain. Normoactive bowel sounds. NEUROLOGICAL: No headaches, no weakness, no numbness. HEMATOLOGICAL: Denies any bleeding or petechiae. GENITOURINARY: Denies any burning micturition, frequency, or urgency. MUSCULOSKELETAL/RHEUMATOLOGICAL: Denies any joint pain, swelling, or any muscle pain. ENDOCRINE: Denies any polyuria or polydipsia. Active Medications Al Hydroxide/Mg Hydroxide (Maalox) 30 ml PO Q4HR PRN PRN Reason: Heartburn Aspirin (Aspirin) 81 mg PO DAILY [facility] Last Admin: 05/26/19 08:02 Dose: 81 mg Documented by: Atropine Sulfate (Atropine) 0.5 mg IV ONCE PRN PRN Reason: Symptomatic Bradycardia Ezetimibe (Zetia) 10 mg PO DAILY [facility] Last Admin: 05/26/19 07:59 Dose: 10 mg Documented by: Insulin Aspart (Novolog) 0 unit SQ [facility]; Protocol Last Admin: 05/26/19 12:09 Dose: 3 unit Documented by: Insulin Human NPH (Humulin N) 15 unit SQ BID [facility] Last Admin: 05/26/19 07:56 Dose: 15 unit Documented by: Losartan Potassium (Cozaar) 12.5 mg PO DAILY [facility] Last Admin: 05/26/19 12:11 Dose: Not Given Documented by: Metoprolol Tartrate (Lopressor) 25 mg PO BID [facility] Last Admin: 05/26/19 12:10 Dose: 25 mg Documented by: Miscellaneous Information (Magnesium Per Protocol) 1 each MISCELLANE DAILY PRN; Protocol PRN Reason: Per Protocol Miscellaneous Information (Potassium Per Protocol) 1 each MISCELLANE DAILY PRN PRN Reason: Per Protocol Miscellaneous Information (Rx Info: Iv Contrast Was Given) 1 each MISCELLANE DAILY PRN PRN Reason: Per Protocol Stop: 05/26/19 16:46 Nicotine (Habitrol 14mg/24hr Patch) 1 patch TRANSDERM DAILY [facility] Last Admin: 05/26/19 14:45 Dose: 1 patch Documented by: Nitroglycerin (Nitrostat) 0.4 mg SUBLINGUAL Q5M PRN PRN Reason: Chest Pain Last Admin: 05/25/19 17:03 Dose: 0.4 mg Documented by: Prasugrel (Effient) 10 mg PO DAILY [facility] Last Admin: 05/26/19 07:58 Dose: 10 mg Documented by: Spironolactone (Aldactone) 25 mg PO DAILY [facility] Last Admin: 05/26/19 07:59 Dose: 25 mg Documented by: Zolpidem Tartrate (Ambien) 5 mg PO HS PRN PRN Reason: Insomnia s Objective - Vital Signs Vital signs: Vital Signs Temp 98.9 F 05/26/19 08:00 Pulse 90 05/26/19 12:00 Resp 17 05/26/19 12:00 BP 96/63 05/26/19 12:00 Pulse Ox 96 05/26/19 12:00 Intake & Output 05/25/19 05/26/19 05/26/19 18:59 06:59 18:59 Intake Total 770.677 662.716 0 Output Total 4 400 Balance 766.677 262.716 0 Weight 69.8 kg Intake: IV 690 160 D5-0.45% NaCl with KCl 450 20Meq/l 1,000 ml @ 150 mls/hr IV .Q6H40M [facility] Rx# :[id number] Sodium Chloride 0.9% 1, 240 160 000 ml @ 100 mls/hr IV . Q10H [facility] Rx#:[id number] Intake, IV Titration 80.677 102.716 Amount Heparin Sod,Pork in 0.45% 80.677 102.716 NaCl 25,000 unit In 0.45 % NaCl 1 250ml.bag @ 12 UNITS/KG/HR 8.437 mls/hr IV .Q24H [facility] Rx#: [id number] Oral 400 0 Output: Urine 4 400 Other: Voiding Method Toilet # Voids 1 0 ABP, PAP, CO, CI - Last Documented Arterial Blood Pressure 133/57 - Exam GENERAL: The patient is alert and oriented x3, not in any acute distress. Well d eveloped, well nourished. HEENT: Pupils are round and equally reacting to light. EOMI. No scleral icterus. No conjunctival pallor. Normocephalic, atraumatic. No pharyngeal erythema. No thyromegaly. CARDIOVASCULAR: S1 and S2 present. No murmurs, rubs, or gallops. PULMONARY: Chest is clear to auscultation, no wheezing or crackles. ABDOMEN: Soft, nontender, nondistended, normoactive bowel sounds. No palpable organomegaly. MUSCULOSKELETAL: No joint swelling or deformity. EXTREMITIES: No cyanosis, clubbing, or pedal edema. NEUROLOGICAL: Gross neurological examination did not reveal any focal deficits. SKIN: No rashes. no petechiae. - Labs CBC & Chem 7: 05/26/19 04:20 05/25/19 05:03 Labs: Abnormal Lab Results - Last 24 Hours (Table) 05/25/19 05/25/19 05/25/19 Range/Units 16:37 19:41 21:36 APTT 55.9 H (22.0-30.0) sec POC Glucose (mg/dL) 224 H 258 H (75-99) mg/dL 05/26/19 05/26/19 05/26/19 Range/Units 06:03 07:04 11:37 APTT 50.8 H (22.0-30.0) sec POC Glucose (mg/dL) 284 H 221 H (75-99) mg/dL Microbiology - Last 24 Hours (Table) 05/24/19 13:50 Urine Culture - Preliminary Urine,Voided Gram Neg Bacilli Assessment and Plan Assessment: acute ST elevation myocardial infarction with elevated troponin. Status post cardiac cath with stent placement in the LAD Acute systolic congestive heart failure with low ejection fraction at 25-30% Diabetes mellitus with hyperglycemia Acute urinary tract infection with gram-negative microorganism Leukocytosis is felt to be multifactorial secondary to her infection from UTI as well as stroke Plan: this is a pleasant 48 years old female who presents with stroke and UTI. Continue with antiplatelet medication including aspirin and if he ends. Patient counseled about the importance of this medication given she has a stent placed in her LAD.although patient isn't heart failure however she is breathing comfortably and she saturating normal, so no Lasix as needed for now. Continue with insulin NPH 15 units twice a day and continue with insulin sliding scale. Continue with losartan, metoprolol, nicotine patch. Then with ceftriaxone follow-up urine culture Labs and medication were reviewed.. Continue same treatment. Continue with symptomatic treatment. Resume home medication. Monitor lytes and vitals. DVT and GI prophylaxis. Further recommendations of the clinical course of the patient DVT prophylaxis: Subcutaneous heparin GI Prophylaxis: Pepcid Prognosis is guarded Dr. Ulrich will resume The care of the patient on Tuesday
[2019-05-26 17:08] LABS: Glucose,Whole Blood 287 mg/dL (75-99)
[2019-05-26 20:39] LABS: Glucose,Whole Blood 268 mg/dL (75-99)
[2019-05-26] MEDS ORDERED: FAMOTIDINE 20 MG/2 ML VIAL IV SCH (21:00)
[2019-05-26] MEDS: METOPROLOL TARTRATE 12.5 MG TAB PO SCH (21:03)
[2019-05-26] MEDS: FAMOTIDINE 20 MG TAB PO SCH (21:03)
[2019-05-26] MEDS: HEPARIN SODIUM,PORCINE 5,000 UNIT/ML 1 ML VIAL SQ SCH (21:04)
[2019-05-26] MEDS: INSULIN NPH 300 UNIT/3 ML VIAL SQ SCH (21:06)
[2019-05-27 04:47] LABS: Basophils % (A) 0 %; Eosinophils # (A) 0.1 k/uL (0-0.7); Eosinophils % (A) 1 %; HCT 38.1 % (34.0-46.0); HGB 12.7 gm/dL (11.4-16.0); Lymphocytes # (A) 2.2 k/uL (1.0-4.8); Lymphocytes % (A) 22 %; MCH 28.3 pg (25.0-35.0); MCHC 33.4 g/dL (31.0-37.0); MCV 84.7 fL (80.0-100.0); Mean Platelet Volume 7.7; Monocytes # (A) 0.5 k/uL (0-1.0); Monocytes % (A) 5 %; Neutrophils # (A) 6.7 k/uL (1.3-7.7); Neutrophils % (A) 70 %; Platelet Count 305 k/uL (150-450); RBC 4.49 m/uL (3.80-5.40); RDW 12.1 % (11.5-15.5); WBC 9.6 k/uL (3.8-10.6)
[2019-05-27 06:58] LABS: Glucose,Whole Blood 157 mg/dL (75-99)
[2019-05-27] MEDS: INSULIN ASPART (NovoLOG) 100 UNIT/ML VIAL SQ SCH ×4 (07:12→20:47)
[2019-05-27] MEDS ORDERED: ALPRAZolam 0.5 MG TAB PO PRN (07:49)
[2019-05-27] MEDS: METOPROLOL TARTRATE 12.5 MG TAB PO SCH ×2 (08:07→20:47)
[2019-05-27] MEDS: PRASUGREL 10 MG TAB PO SCH (08:07)
[2019-05-27] MEDS: FAMOTIDINE 20 MG TAB PO SCH ×2 (08:07→20:47)
[2019-05-27] MEDS: LOSARTAN 25 MG TAB PO SCH (08:08)
[2019-05-27] MEDS: NICOTINE 14MG/24HR PATCH TRANSDERM SCH (08:08)
[2019-05-27] MEDS: ASPIRIN 81 MG PO SCH (08:08)
[2019-05-27] MEDS: SPIRONOLACTONE 25 MG TAB PO SCH (08:08)
[2019-05-27] MEDS: HEPARIN SODIUM,PORCINE 5,000 UNIT/ML 1 ML VIAL SQ SCH ×2 (08:08→20:48)
[2019-05-27] MEDS: EZETIMIBE 10 MG TAB PO SCH (08:09)
[2019-05-27] MEDS: INSULIN NPH 300 UNIT/3 ML VIAL SQ SCH ×2 (08:09→21:12)
--- NOTE | 2019-05-27 08:28 | P.PN ---
Subjective this is a pleasant 48 years old female with past medical history of diabetes mellitus. Presents because of hyperglycemia.found to haveSTEMI with si gnificantly elevated troponin,she underwent cardiac cath and she is status post placement of a stent in her left anterior descending artery. Also on echocardiogram she had low ejection fraction of 25-30% with a diagnosis with acute systolic congestive heart failure. Patient was admitted to the ICU after the cardiac cath and she's been monitored for closely.she was a started on aspirin and Effient, and also she was a started on heparin drip for 24 hours. Also patient was complaining of from burning sensation in her urine with increased frequency. She had mild intermittent fever with leukocytosis, patient received 1 dose of Rocephin which we going to continue with as well. Her urine culture is growing gram-negative bacilli with the final result is pending. Glucose is better controlled. Her blood pressure was on the low normal side. today she is complaining of from mild chest pressure, and mild swelling in the feet however on examination her feet swelling is very minimaland patient was counseled to raise her legs at nighttime and she agrees 05/27/2019 Patient remains in the ICU. She is fully awake and oriented. She has persistent pressure sensation in her chest that she came to the hospital and today she has mild discomfort of the left shoulder however she denies trauma and she couldn't move her shoulder freely above her head. No dyspnea. Her dysuria is better. His urine culture is growing E. coli which is sensitive to Rocephin which is provided for her. WBC is back to normal at 9.6, glucose this morning is better controlled 157 and 268 after increasing her NPH insulin from 15 up to 18 units twice a day. Blood pressure is stable at 104/72. Patient is a febrile for the last 2 days. Echocardiogram showing ejection fraction of 40%. Industrial Laborer recommended to repeat echo in 6 weeks Review of systems CONSTITUTIONAL: No fever, no malaise, no fatigue. HEENT: No recent visual problems or hearing problems. Denied any sore throat. CARDIOVASCULAR: No orthopnea, PND, no palpitations, no syncope. PULMONARY: No shortness of breath, no cough, no hemoptysis. GASTROINTESTINAL: No diarrhea, no nausea, no vomiting, no abdominal pain. Normoactive bowel sounds. NEUROLOGICAL: No headaches, no weakness, no numbness. HEMATOLOGICAL: Denies any bleeding or petechiae. GENITOURINARY: Denies any burning micturition, frequency, or urgency. MUSCULOSKELETAL/RHEUMATOLOGICAL: Denies any joint pain, swelling, or any muscle pain. ENDOCRINE: Denies any polyuria or polydipsia. Active Medications Generic Name Dose Route Start Last Admin Trade Name Freq PRN Reason Stop Dose Admin Al Hydroxide/Mg Hydroxide 30 ml 05/24/19 16:46 Maalox PO Q4HR PRN Heartburn Alprazolam 0.5 mg 05/27/19 07:49 05/27/19 08:08 Xanax PO 0.5 mg BID PRN Administration Anxiety Aspirin 81 mg 05/25/19 09:00 05/27/19 08:08 Aspirin PO 81 mg DAILY SEJAL Administration Atropine Sulfate 0.5 mg 05/24/19 16:46 Atropine IV ONCE PRN Symptomatic Bradycardia Ezetimibe 10 mg 05/24/19 18:45 05/27/19 08:09 Zetia PO 10 mg DAILY SEJAL Administration Famotidine 20 mg 05/26/19 21:00 05/27/19 08:07 Pepcid PO 20 mg BID SEJAL Administration Heparin Sodium (Porcine) 5,000 unit 05/26/19 21:00 05/27/19 08:08 Heparin SQ 5,000 unit Q12HR SEJAL Administration Ceftriaxone Sodium 1 gm/ 50 mls @ 100 mls/hr 05/27/19 09:00 Sodium Chloride IVPB Q24HR SEJAL Insulin Aspart 0 unit 05/25/19 12:30 05/27/19 07:12 Novolog SQ 1 unit ACHS SEJAL Administration Protocol Insulin Human NPH 18 unit 05/26/19 21:00 05/27/19 08:09 Humulin N SQ 18 unit BID SEJAL Administration Losartan Potassium 12.5 mg 05/25/19 09:00 05/27/19 08:08 Cozaar PO 12.5 mg DAILY SEJAL Administration Metoprolol Tartrate 12.5 mg 05/26/19 21:00 05/27/19 08:07 Lopressor PO 12.5 mg BID SEJAL Administration Miscellaneous Information 1 each 05/24/19 13:40 Magnesium Per Protocol MISCELLANE DAILY PRN Per Protocol Protocol Miscellaneous Information 1 each 05/24/19 13:40 Potassium Per Protocol MISCELLANE DAILY PRN Per Protocol Nicotine 1 patch 05/26/19 12:30 05/27/19 08:08 Habitrol 14mg/24hr Patch TRANSDERM 1 patch DAILY SEJAL Administration Nitroglycerin 0.4 mg 05/24/19 16:46 05/25/19 17:03 Nitrostat SUBLINGUAL 0.4 mg Q5M PRN Administration Chest Pain Prasugrel 10 mg 05/25/19 09:00 05/27/19 08:07 Effient PO 10 mg DAILY SEJAL Administration Spironolactone 25 mg 05/25/19 09:00 05/27/19 08:08 Aldactone PO 25 mg DAILY SEJAL Administration Zolpidem Tartrate 5 mg 05/24/19 16:46 Ambien PO HS PRN Insomnia Objective - Vital Signs Vital signs: Vital Signs Temp 98.4 F 05/27/19 04:00 Pulse 85 05/27/19 04:00 Resp 12 05/27/19 04:00 BP 104/72 05/27/19 04:00 Pulse Ox 96 05/27/19 04:00 Intake & Output 05/26/19 05/27/19 05/27/19 18:59 06:59 18:59 Intake Total 0 400 Balance 0 400 Weight 67 kg Intake: Oral 0 400 Other: # Voids 2 2 ABP, PAP, CO, CI - Last Documented Arterial Blood Pressure 133/57 - Exam GENERAL: The patient is alert and oriented x3, not in any acute distress. Well developed, well nourished. HEENT: Pupils are round and equally reacting to light. EOMI. No scleral icterus. No conjunctival pallor. Normocephalic, atraumatic. No pharyngeal erythema. No thyromegaly. CARDIOVASCULAR: S1 and S2 present. No murmurs, rubs, or gallops. PULMONARY: Chest is clear to auscultation, no wheezing or crackles. ABDOMEN: Soft, nontender, nondistended, normoactive bowel sounds. No palpable organomegaly. MUSCULOSKELETAL: No joint swelling or deformity. EXTREMITIES: No cyanosis, clubbing, or pedal edema. NEUROLOGICAL: Gross neurological examination did not reveal any focal deficits. SKIN: No rashes. no petechiae. - Labs CBC & Chem 7: 05/27/19 04:15 05/25/19 05:03 Labs: Abnormal Lab Results - Last 24 Hours (Table) 05/26/19 05/26/19 05/26/19 Range/Units 11:37 16:56 20:27 POC Glucose (mg/dL) 221 H 287 H 268 H (75-99) mg/dL 05/27/19 Range/Units 06:48 POC Glucose (mg/dL) 157 H (75-99) mg/dL Microbiology - Last 24 Hours (Table) 05/24/19 13:50 Urine Culture - Final Urine,Voided Escherichia coli Assessment and Plan Assessment: acute ST elevation myocardial infarction with elevated troponin. Status post cardiac cath with stent placement in the LAD Acute systolic congestive heart failure with low ejection fraction at 25-30%, and currently is 40% Diabetes mellitus with hyperglycemia Acute urinary tract infection with gram-negative microorganism Leukocytosis is felt to be multifactorial secondary to her infection from UTI as well as stroke Plan: this is a pleasant 48 years old female who presents with stroke and UTI. Continue with antiplatelet medication including aspirin and if he ends. Patient counseled about the importance of this medication given she has a stent placed in her LAD.although patient is in heart failure however she is breathing comfortably and she saturating normal, so no Lasix as needed for now. Continue with insulin NPH 18 units twice a day and continue with insulin sliding scale. Continue with losartan, metoprolol, nicotine patch. Then with ceftriaxone for E. coli UTI. Patient will need to repeat echocardiogram ABOUT 1 week from now per refinery operator helper crude unit Labs and medication were reviewed.. Continue same treatment. Continue with symptomatic treatment. Resume home medication. Monitor lytes and vitals. DVT and GI prophylaxis. Further recommendations of the clinical course of the patient DVT prophylaxis: Subcutaneous heparin GI Prophylaxis: Pepcid Prognosis is guarded Dr. Ulrich will resume The care of the patient on Tuesday
[2019-05-27 11:54] LABS: Glucose,Whole Blood 125 mg/dL (75-99)
--- NOTE | 2019-05-27 13:23 | PN ---
PROGRESS NOTE This patient is status post anterior wall myocardial infarction. History of diabetes. The patient is currently sleeping. She is lying comfortably in the bed. Patient's vital signs and lab tests over the last 24 hours reviewed. Blood pressure is 103/77 mmHg, heart rate is 90 per minute. First and second heart sounds are normal. Lungs are clear to auscultation and percussion. The patient remains stable cardiac jernigan. Continue ambulation. If the patient is doing well, she can be discharged home tomorrow. MMODL / IJN: [id number] /
[2019-05-27 16:53] LABS: Glucose,Whole Blood 216 mg/dL (75-99)
[2019-05-27 20:32] LABS: Glucose,Whole Blood 256 mg/dL (75-99)
[2019-05-28 06:14] LABS: Glucose,Whole Blood 220 mg/dL (75-99)
[2019-05-28] MEDS: INSULIN ASPART (NovoLOG) 100 UNIT/ML VIAL SQ SCH ×2 (06:26→12:01)
[2019-05-28] MEDS: LOSARTAN 25 MG TAB PO SCH (08:57)
[2019-05-28] MEDS: SPIRONOLACTONE 25 MG TAB PO SCH (08:57)
[2019-05-28] MEDS: FAMOTIDINE 20 MG TAB PO SCH (08:57)
[2019-05-28] MEDS: ASPIRIN 81 MG PO SCH (08:57)
[2019-05-28] MEDS: PRASUGREL 10 MG TAB PO SCH (08:58)
[2019-05-28] MEDS: NICOTINE 14MG/24HR PATCH TRANSDERM SCH (08:58)
[2019-05-28] MEDS: HEPARIN SODIUM,PORCINE 5,000 UNIT/ML 1 ML VIAL SQ SCH (08:58)
[2019-05-28] MEDS: INSULIN NPH 300 UNIT/3 ML VIAL SQ SCH (08:58)
[2019-05-28] MEDS: METOPROLOL TARTRATE 12.5 MG TAB PO SCH (08:58)
[2019-05-28] MEDS: EZETIMIBE 10 MG TAB PO SCH (08:58)
[2019-05-28 09:51] VITALS: RESP 20; TEMP 98.5
[2019-05-28] MEDS ORDERED: CLOPIDOGREL 75 MG TAB PO SCH (10:45)
[2019-05-28 11:32] LABS: Glucose,Whole Blood 220 mg/dL (75-99)
--- NOTE | 2019-05-28 12:07 | P.PN ---
Subjective Progress Note Date: 05/28/19 This is a 48-year-old female with known history of diabetes, hyperlipidemia, hypertension, who had not been taking insulin for the past one month prior to admission here. Her blood sugars were running high on arrival, routine EKG was obtained which show evidence of ST elevation myocardial infarc tion and the patient was taken directly to the cardiac catheterization lab where she underwent angioplasty of the LAD.echocardiogram with Doppler study was performed which revealed an ejection fraction of 25-30%.blood pressure this morning 105/77 with a heart rate in the 80s, 98% on room air.patient has no medication coverage, so we will discontinue the Effient and put the patient on Plavix along with a baby aspirin.we will continue the Zetia, Pepcid, losartan, and increase beta medina to 25 mg by mouth twice a day she will also be discharged home with a nicotine patch and sublingual nitroglycerin. She has been educated regarding the importance of medication compliance and nicotine cessation. Objective - Vital Signs Vital signs: Vital Signs Temp 98.5 F 05/28/19 08:00 Pulse 94 05/28/19 08:00 Resp 20 05/28/19 08:00 BP 105/77 05/28/19 08:00 Pulse Ox 98 05/28/19 08:00 Intake & Output 05/27/19 05/28/19 05/28/19 18:59 06:59 18:59 Intake Total 290 240 Balance 290 240 Weight 66.4 kg Intake: Intake, IV Titration 50 Amount cefTRIAXone 1 gm In 50 Sodium Chloride 0.9% 50 ml @ 100 mls/hr IVPB Q24HR [facility] Rx#:[id number] Oral 240 240 Other: Voiding Method Toilet Toilet # Voids 1 1 ABP, PAP, CO, CI - Last Documented Arterial Blood Pressure 133/57 - Exam PHYSICAL EXAMINATION: GENERAL:48-year-old female in no acute distress at the time of my examination HEENT: Head is atraumatic, normocephalic. Pupils equal, round. Sclera anicteric. Conjunctiva are clear. Mucous membranes of the mouth are moist. Neck is supple. There is no elevated jugular venous pressure.no carotid bruit is heard. HEART EXAMINATION: [Heart S1, S2 normal. No murmur or gallop heard.] CHEST EXAMINATION:[ Lungs are clear to auscultation and precussion. No chest wall tenderness is noted on palpation or with deep breathing.] ABDOMEN: [ Soft, nontender. Bowel sounds are heard. No organomegaly noted]. EXTREMITIES:[ 2+ peripheral pulses with no evidence of peripheral edema and no calf tenderness noted]. NEUROLOGIC [patient is awake, alert and oriented 3.] . - Labs CBC & Chem 7: 05/27/19 04:15 05/25/19 05:03 Labs: Abnormal Lab Results - Last 24 Hours (Table) 05/27/19 05/27/19 05/28/19 Range/Units 16:46 20:30 06:12 POC Glucose (mg/dL) 216 H 256 H 220 H (75-99) mg/dL 05/28/19 Range/Units 11:31 POC Glucose (mg/dL) 220 H (75-99) mg/dL Assessment and Plan Plan: assessment and plan #1 ST elevation myocardial infarction, status post angioplasty and stenting of the LAD #2 diabetes, uncontrolled, noncompliant with medication #3 hyperlipidemia #4 hypertension #5 nicotine dependence #6 ischemic cardiomyopathywith documented ejection fraction of 25-30%. Plan Patient may be able to be discharged home today from our perspective. We will make her a follow-up appointment in the office with Dr. De Jesus post discharge. Discontinue the Effient and start the patient on Plavix 75 mg daily, increase the dose of beta medina today. DNP note has been reviewed, I agree with a documented findings and plan of care. Patient was seen and examined.
[2019-05-28 12:29] VITALS: BP 117/79; PULSE 80
[2019-05-28 13:06] LABS: Hemoglobin A1C 12.2 % (4.0-6.0)
--- NOTE | 2019-05-28 15:18 | P.DS ---
Providers Date of admission: 05/24/19 14:41 Expected date of discharge: 05/28/19 Attending physician: Carlyle Ulrich MD Consults: 05/24/19 16:46 Consult Physician Routine Consulting Provider: [facility] Consult Reason/Comments: Post Interventional patient Do you want consulting provider notified?: Already Contacted Primary care physician: Vesta Giraldo [place] [facility] Course: final diagnoses: acute ST elevation myocardial infarction with elevated troponin. Status post cardiac cath with stent placement in the LAD Acute systolic congestive heart failure with low ejection fraction at 25-30%, and currently is 40% Diabetes mellitus,uncontrolled, hemoglobin A1c 12.2, with hyperglycemia Acute urinary tract infection with gram-negative microorganism,completed antibiotic therapy. Hospital course:this is a pleasant 48 years old female with past medical history of diabetes mellitus. Presents because of hyperglycemia.found to haveSTEMI with significantly elevated troponin,she underwent cardiac cath and she is status post placement of a stent in her left anterior descending artery. Also on echocardiogram she had low ejection fraction of 25-30% with a diagnosis with acute systolic congestive heart failure. Patient was admitted to the ICU after the cardiac cath and she's been monitored for closely.she was a started on aspirin and Effient, and also she was a started on heparin drip for 24 hours. Also patient was complaining of from burning sensation in her urine with increased frequency. She had mild intermittent fever with leukocytosis, patient received 1 dose of Rocephin which we going to continue with as well. Her urine culture is growing gram-negative bacilli with the final result is pending. Glucose is better controlled. Her blood pressure was on the low normal side. today she is complaining of from mild chest pressure, and mild swelling in the feet however on examination her feet swelling is very minimaland patient was counseled to raise her legs at nighttime and she agrees 05/27/2019 Patient remains in the ICU. She is fully awake and oriented. She has persistent pressure sensation in her chest that she came to the hospital and today she has mild discomfort of the left shoulder however she denies trauma and she couldn't move her shoulder freely above her head. No dyspnea. Her dysuria is better. His urine culture is growing E. coli which is sensitive to Rocephin which is provided for her. WBC is back to normal at 9.6, glucose this morning is better controlled 157 and 268 after increasing her NPH insulin from 15 up to 18 units twice a day. Blood pressure is stable at 104/72. Patient is a febrile for the last 2 days. Echocardiogram showing ejection fraction of 40%. Content Management Specialist recommended to repeat echo in 6 weeks significant clinical improvement. Smoking sensation as well as tight blood sugar control reinforced. Case management assisting with discharge medications. Patient has been instructed to follow-up with PCP's office in 2 days to further discuss diabetic regimen, diabetic education. Cleared by cardiology for discharge. Patient is being discharged home in a stable condition with guarded prognosis - Exam GENERAL: alert and oriented x3, not in any acute distress. CARDIOVASCULAR: S1 and S2 present. No murmurs, rubs, or gallops. PULMONARY: Chest is clear to auscultation, no wheezing or crackles. ABDOMEN: Soft, nontender, nondistended, normoactive bowel sounds. No palpable organomegaly. NEUROLOGICAL: Gross neurological examination did not reveal any focal deficits. The impression and plan of care has been dictated as directed. : I performed a history and examination of this patient, discussed the same with the dictator. I agree with the dictator's note ,documented as a scribe. Any additional findings or plans will be noted. Patient Condition at Discharge: Stable Plan - Discharge Summary Discharge Rx Participant: Yes New Discharge Prescriptions: New Spironolactone [Aldactone] 25 mg PO DAILY #30 tab Aspirin 81 mg PO DAILY #30 chew Losartan [Cozaar] 12.5 mg PO DAILY #30 tab Nicotine 14Mg/24Hr Patch [Habitrol] 1 patch TRANSDERM DAILY #30 patch Nitroglycerin Sl Tabs [Nitrostat] 0.4 mg SUBLINGUAL Q5M PRN #25 tab PRN Reason: Chest Pain Ezetimibe [Zetia] 10 mg PO DAILY #30 tab Clopidogrel Bisulfate [Plavix] 75 mg PO DAILY #30 tab Metoprolol Tartrate [Lopressor] 25 mg PO BID #60 tab INSULIN LISPRO (HumaLOG) [humaLOG] 0 unit SQ ACHS #1 vial Insulin NPH [humuLIN N] 18 unit SQ BID #1 vial Discontinued metFORMIN HCL ER [Glucophage Xr] 1,000 mg PO BID Insulin Glargine [Lantus] 30 unit SQ HS INSULIN ASPART (NovoLOG) [NovoLOG (formulary)] See Protocol SQ AC-TID No Action Omeprazole [PriLOSEC] 20 mg PO AC-[facility] Meloxicam [Mobic] 15 mg PO DAILY Citalopram Hydrobromide [Citalopram HBr] 20 mg PO DAILY Discharge Medication List Omeprazole [PriLOSEC] 20 mg PO [id number] 05/24/19 [History] Aspirin 81 mg PO DAILY #30 chew 05/28/19 [Rx] Citalopram Hydrobromide [Citalopram HBr] 20 mg PO DAILY 05/28/19 [History] Clopidogrel Bisulfate [Plavix] 75 mg PO DAILY #30 tab 05/28/19 [Rx] Ezetimibe [Zetia] 10 mg PO DAILY #30 tab 05/28/19 [Rx] INSULIN LISPRO (HumaLOG) [humaLOG] 0 unit SQ ACHS #1 vial 05/28/19 [Rx] Insulin NPH [humuLIN N] 18 unit SQ BID #1 vial 05/28/19 [Rx] Losartan [Cozaar] 12.5 mg PO DAILY #30 tab 05/28/19 [Rx] Meloxicam [Mobic] 15 mg PO DAILY 05/28/19 [History] Metoprolol Tartrate [Lopressor] 25 mg PO BID #60 tab 05/28/19 [Rx] Nicotine 14Mg/24Hr Patch [Habitrol] 1 patch TRANSDERM DAILY #30 patch 05/28/19 [Rx] Nitroglycerin Sl Tabs [Nitrostat] 0.4 mg SUBLINGUAL Q5M PRN #25 tab 05/28/19 [Rx] Spironolactone [Aldactone] 25 mg PO DAILY #30 tab 05/28/19 [Rx] Follow up Appointment(s)/Referral(s): Marli De Jesus MD [STAFF PHYSICIAN] - 1 Week (Spoke to passenger locomotive engineer. Office to call with appointment time) Carlyle Ulrich MD [STAFF PHYSICIAN] - 05/30/19 1:45 pm (Tuesday [address] [place] [address]) Ambulatory/Diagnostic Orders: Complete Blood Count w/diff [LAB.AMB] Time Frame: 2 Days, Location: None Selected Patient Instructions/Handouts: *Surgery [facility] - After Heart Catheterization - Manufacturing Analyst Instructions, Clopidogrel (By mouth) Activity/Diet/Wound Care/Special Instructions: PLease shcedule APt. With PCP for ( in 48 hrs) further DM med regime to be addressed. Diet: CONsist. Carb Maintain log of accucheks and take to F/U visit with PCP for further rec outpatient diabetic education at PCPs office. Discharge Disposition: HOME SELF-CARE
[2019-05-28] MEDS ORDERED: METOPROLOL TARTRATE 25 MG TAB PO SCH (21:00)
== END 2019-05-28 15:08 | disposition home or self-care (01) | DRG 250 ==
LOC: EC 13:21 → 2SICU 14:41 → 3SCARD 05-27 10:50
PROVIDERS: ADMIT Family Medicine; ATTEND Family Medicine
PROC: B2151ZZ Fluoroscopy of Left Heart using Low Osmolar Contrast (ICD-10-PCS; 2019-05-24)
PROC: 02703ZZ Dilation of Coronary Artery, One Artery, Percutaneous Approach (ICD-10-PCS; principal; 2019-05-24 14:35)
PROC: B2111ZZ Fluoroscopy of Multiple Coronary Arteries using Low Osmolar Contrast (ICD-10-PCS; 2019-05-24 14:35)
DX: I21.09 ST elevation (STEMI) myocardial infarction involving other coronary artery of anterior wall (principal); I50.23 Acute on chronic systolic (congestive) heart failure; N39.0 Urinary tract infection, site not specified; I11.0 Hypertensive heart disease with heart failure; E11.65 Type 2 diabetes mellitus with hyperglycemia; I25.10 Atherosclerotic heart disease of native coronary artery without angina pectoris; T38.3X6A Underdosing of insulin and oral hypoglycemic [antidiabetic] drugs, initial encounter; Z91.128 Patient's intentional underdosing of medication regimen for other reason; F32.9 Major depressive disorder, single episode, unspecified; E78.5 Hyperlipidemia, unspecified; F17.200 Nicotine dependence, unspecified, uncomplicated; Z71.6 Tobacco abuse counseling; Z79.4 Long term (current) use of insulin; Z79.1 Long term (current) use of non-steroidal anti-inflammatories (NSAID); Z79.899 Other long term (current) drug therapy; Z90.49 Acquired absence of other specified parts of digestive tract; Z88.5 Allergy status to narcotic agent; Z88.8 Allergy status to other drugs, medicaments and biological substances; Z82.49 Family history of ischemic heart disease and other diseases of the circulatory system; Z82.5 Family history of asthma and other chronic lower respiratory diseases; Y63.6 Underdosing and nonadministration of necessary drug, medicament or biological substance; Y92.009 Unspecified place in unspecified non-institutional (private) residence as the place of occurrence of the external cause
CPT/HCPCS: 36415; 71045; 80048; 80051; 80061; 81001; 82009; 82565; 82803; 82947; 83036; 83735; 84100; 84484; 84520; 85025; 85610; 85730; 87077; 87086; 87186; 92920; 93306; 93458; 96361; 96374; 99291